=== PATIENT | female | born 1985 | race Two or more races ===

== ENCOUNTER 2016-08-22 20:02 | Emergency (ER) | payer BC ==
[~2016-08-22] VITALS: Ht 152.4 cm; Wt 79.4 kg
[~2016-08-22 20:02] MED LIST: METO25TA4 PO
[2016-08-22] MEDS ORDERED: IV NORMAL SALINE 1,000ML 1,000 ML IV SCH ×2 (20:35→21:45)
[2016-08-22] MEDS ORDERED: ONDANSETRON PF 4 MG/2 ML VIAL. IV ONE (20:45)
[2016-08-22 20:51] LABS: BILIRUBIN,URINE NEG (NEG); CLARITY,URINE CLOUDY; COLOR,URINE YELLOW; GLUCOSE,URINE NEG (NEG)
[2016-08-22 20:52] LABS: BACTERIA,URINE FEW /HPF (0-FEW); NITRITE,URINE NEG (NEG); SQUAMOUS EPITHELIAL CELL,UR MANY /LPF; UROBILINOGEN,URINE 0.2 mg/dL (0.2 mg/dL)
[2016-08-22] MEDS ORDERED: IV NORMAL SALINE 50ML 50 ML ONE (20:52)
[2016-08-22] MEDS ORDERED: cefTRIAXone SODIUM 1 GM VIAL IV ONE (20:52)
[2016-08-22 20:53] LABS: YEAST,URINE PRESENT /HPF
[2016-08-22 21:00] LABS: BASO # 0.1 x10^3/uL (0.0-0.2); BASO % 1 % (0-3); EOS % 0 % (0-3); HEMATOCRIT 43.1 % (36.0-47.0); HEMOGLOBIN 14.4 g/dL (12.0-15.5); LYMPH # 2.9 x10^3/uL (1.0-4.8); LYMPH % 29 % (24-48); MEAN CORPUSCULAR HEMOGLOBIN 27 pg (25-35); MEAN CORPUSCULAR HGB CONC 33 g/dL (31-37); MEAN CORPUSCULAR VOLUME 81 fL (79-100); MONO # 0.6 x10^3/uL (0.0-1.1); MONO % 6 % (0-9); NEUT # 6.4 x10^3uL (1.8-7.7); NEUT % 64 % (31-73); PLATELET COUNT 292 x10^3/uL (140-400); RED BLOOD COUNT 5.35 x10^6/uL (3.50-5.40)
--- NOTE | 2016-08-22 21:00 | PHYS DOC ---
General Chief Complaint: PAIN ON URINATION Stated Complaint: UTI WITH FEVER Time Seen by MD: 20:19 Source: patient Exam Limitations: no limitations Problems: History of Present Illness Initial Comments Patient is a 31-year-old female who comes to the ED complaining of urinary tract infection. Patient states that she's had dysuria frequency hesitancy and urgency for the past 3 days. Yesterday she had a telemedicine evaluation and was diagnosed with a urinary tract infection she was prescribed Bactrim DS. She began taking the Bactrim yesterday. Today she says she feels much worse with body aches chills sweats and nausea. Last menstrual period August 14 ED vitals: 100.5, 142, 26, 161/96 Timing/Duration: getting worse (3 days) Severity: severe Modifying Factors: improves with other Associated Symptoms: diaphoresis, fever/chills, headaches, malaise, nausea/ vomiting, other Allergies: Coded Allergies: No Known Drug Allergies (Unverified , 06/17/15) Past Medical History Medical History: other (hypertension, hypothyroidism) Surgical History: no surgical history Social History Smoker: non-smoker Alcohol: occasionally Drugs: none Review of Systems Constitutional: see HPI Respiratory: denies cough, denies shortness of breath Cardiovascular: denies chest pain, palpitations Gastrointestinal: see HPI Genitourinary: see HPI Musculoskeletal: denies back pain, denies joint swelling, denies neck pain Psychiatric/Neurological: denies headache, denies numbness, denies paresthesia Physical Exam General Appearance: mild distress, obese Eyes: bilateral eye normal inspection, bilateral eye PERRL, bilateral eye EOMI Ear, Nose, Throat: hearing grossly normal, normal ENT inspection, normal pharynx (dry membranes) Neck: non-tender, supple Respiratory: normal breath sounds, no respiratory distress Cardiovascular: normal peripheral pulses, tachycardia Gastrointestinal: soft (nondistended, suprapubic tenderness to palpation without rebound guarding or mass. 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 Interpreted by Dr Santillan Pertinent labs: CBC completely normal, d-dimer 0.26, glucose 269, lactic acid 1.8, C-reactive protein 79.4, urinalysis grossly positive for products of infection as well as yeast. ED course: 31-year-old female presents to the emergency department with history of recently diagnosed urinary tract infection on 1 day of Bactrim DS with symptoms of possible sepsis. She is febrile and tachycardic on arrival she received Rocephin IV as well as 2 L of normal saline intravenously. Lactic acid was normal d-dimer not elevated ruling out sepsis and PE. Elevated glucoses concerning, raising question for possible new diabetes diagnosis. Her vital signs normalized with hydration and upon recheck patient states all of her symptoms have resolved. I discussed sepsis and it's diagnosis as well as standers of care for medical treatment. I discussed possibility of observation admission for hydration and IV antibiotics patient requests discharge home with conservative care and states she will follow up as needed. Given her response to the treatment in the department I feel this is reasonable and her vital signs likely represented multi-factorial etiologies including hypovolemia. I discussed the treatment plan and her questions were answered she continues to request a trial of conservative treatment at home. She expressed agreement and understanding of the treatment plan. Departure Time of Disposition: 22:32 Disposition: 01 HOME, SELF-CARE Diagnosis: candiduria, hyperglycemia, h/o UTI Patient Instructions: Basia Infection, Adult, Hyperglycemia, [id number], Urinary Tract Infection, [id number] Additional Instructions: Off work through August 25 note given. Rest, no strenuous activity. Aggressive hydration with Gatorade and water. Continue Bactrim DS, take with food. Prescription: Zofran ODT, diflucan Follow-up with your doctor Wednesday or Wednesday for recheck of urinalysis and schedule fasting labs. Return to ED with new or changing symptoms. TANK SANTILLAN DO Aug 22, 2016 21:00
--- NOTE | 2016-08-22 21:11 | EKG ---
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
[2016-08-22] MEDS ORDERED: FLUCONAZOLE 100 MG TABLET. PO ONE (21:15)
[2016-08-22 21:21] LABS: ALBUMIN 3.8 g/dL (3.4-5.0); C REACTIVE PROTEIN 79.4 mg/L (0-3.3); CALCIUM 9.1 mg/dL (8.5-10.1); CREATININE 0.6 mg/dL (0.6-1.0); DIRECT BILIRUBIN 0.2 mg/dL (0.0-0.2); GFR 117.4; POTASSIUM 3.9 mmol/L (3.5-5.1); TOTAL BILIRUBIN 0.7 mg/dL (0.2-1.0); TOTAL PROTEIN 8.6 g/dL (6.4-8.2)
[2016-08-22] MEDS ORDERED: ACETAMINOPHEN 500 MG TABLET PO ONE (21:45)
[2016-08-22 22:40] VITALS: BP 133/87
== END 2016-08-22 22:45 | disposition home or self-care (01) ==
LOC: ER 20:02
DX: B37.49 Other urogenital candidiasis (principal); R73.9 Hyperglycemia, unspecified; I10 Essential (primary) hypertension; E03.9 Hypothyroidism, unspecified; Z87.440 Personal history of urinary (tract) infections
CPT/HCPCS: 36415; 80048; 80076; 81001; 83605; 84484; 85027; 85379; 86140; 87040; 93005; 96361; 96365; 96375; 99285; J0696; J2405; J7030